=== PATIENT | female | born 1985 | race Caucasian/White ===

== ENCOUNTER 2020-12-11 20:11 | Emergency (ER) | payer MEDICAID ==
[~2020-12-11] VITALS: Ht 157.5 cm; Wt 90.7 kg
[2020-12-11 20:36] VITALS: BP_SYST 147
[2020-12-11 22:05] LABS: BASOPHILS % (AUTO) 0.3 % (0.0-2.0); EOSINOPHILS # (AUTO) 0.1 K/uL (0.0-0.4); EOSINOPHILS % (AUTO) 1.2 % (0.0-4.0); HEMATOCRIT 35.9 % (36-48); LYMPHOCYTES # (AUTO) 1.7 K/uL (1.0-5.5); LYMPHOCYTES % (AUTO) 13.7 % (20.5-51.5); MEAN CORPUSCULAR HEMOGLOBIN 30 pg (27-31); MEAN CORPUSCULAR HGB CONC 33 % (32-36); MEAN CORPUSCULAR VOLUME 91 fL (79.0-98.0); MONOCYTES # (AUTO) 0.5 K/uL (0.0-1.0); MONOCYTES % (AUTO) 4.2 % (1.7-9.3); NEUTROPHILS # (AUTO) 10.1 K/uL (1.8-7.7); NEUTROPHILS % (AUTO) 80.6 % (40.0-70.0); PLATELET COUNT (AUTO) 276 K/uL (130-430); RED BLOOD CELL COUNT(AUTO) 3.97 MIL/uL (4.2-6.2); WHITE BLOOD COUNT (AUTO) 12.5 K/uL (4.8-10.8)
[2020-12-11 22:14] LABS: CALCIUM 9.5 mg/dL (8.4-11.0); CREATININE 1.21 mg/dL (0.55-1.30); POTASSIUM 4.1 mmol/L (3.5-5.1)
--- NOTE | 2020-12-11 22:16 | NUR ---
Placed in room 03 . Placed on air sampling and monitoring, blood pressure machine and pulse oximeter. To gown for exam. Side rails up. Report given to CHELSEA Llamas
[2020-12-11 22:20] LABS: ALBUMIN 3.9 g/dL (3.4-4.8); TOTAL BILIRUBIN 0.3 mg/dL (0.0-1.0)
[2020-12-11 22:23] LABS: BILIRUBIN,URINE NEGATIVE (NEGATIVE); BLOOD, URINE 2+ (NEGATIVE); GLUCOSE,URINE NEGATIVE (NEGATIVE); KETONES,URINE NEGATIVE (NEGATIVE); LEUKOCYTE ESTERASE ,URINE NEGATIVE (NEGATIVE); NITRITE, URINE NEGATIVE (NEGATIVE); PH,URINE 6.5 (5.0-8.0); PROTEIN URINE NEGATIVE (NEGATIVE); UROBILINOGEN,URINE 0.2 (0.2-1.0)
--- NOTE | 2020-12-11 22:26 | NUR ---
ER Dr. Dean at bedside examining patient.
[2020-12-11 22:34] LABS: CLARITY/URINE SLIGHTLY HAZY (CLEAR); COLOR,URINE STRAW (YELLOW)
--- NOTE | 2020-12-11 22:39 | NUR ---
PATIENT FROM HOME AMBULATORY AOX 4 COMPLAINING OF SHARP STABBING CONSTANT RIGHT SIDED PELVIC PAIN RADIATING TO THE LEFT X 1 WEEK WORSENING. DENIES ANY NAUSEA, VOMITING, DIARRHEA, CONSTIPATION. RLQ PAIN ON PALPATION. PAIN 8/10.
[2020-12-11 22:52] LABS: BACTERIA,URINE RARE /HPF (None Seen); MUCUS,URINE None Seen /LPF (None Seen); WBC,URINE 0-3 /HPF (0-3)
[2020-12-11] MEDS ORDERED: AMOX-426 PO (22:57)
[2020-12-11] MEDS ORDERED: ONDA-8 TL (22:57)
[2020-12-11] MEDS ORDERED: IBUP-1970 PO (22:57)
[2020-12-11] MEDS ORDERED: MORPHINE 2 MG/ML INJ. SYRINGE IVP ONE (23:00)
[2020-12-11] MEDS ORDERED: ONDANSETRON 4 MG ODT TAB PO ONE (23:00)
[2020-12-11] MEDS ORDERED: AMOXICILLIN/CLAVULANATE POTASSIUM 875 MG TABLET PO ONE (23:00)
--- NOTE | 2020-12-11 23:05 | NUR ---
Dr. Dean at bedside discussing results with patient.
[2020-12-11] MEDS ORDERED: MORPHINE 2 MG/ML INJ. SYRINGE IM ONE (23:15)
[2020-12-11 23:35] VITALS: BP_SYST 142
--- NOTE | 2020-12-11 23:35 | NUR ---
Patient given written and verbal discharge instructions and verbalizes understanding. ER MD discussed with patient the results and treatment provided. Patient in stable condition. ID arm band removed. Rx of AUGMENTIN, IBUPROFEN, AND ZOFRAN given. Patient educated on pain management and to follow up with PMD. Pain Scale 0/10 Opportunity for questions provided and answered. Medication side effect fact sheet provided.
== END 2020-12-11 23:35 | disposition home or self-care (01) ==
LOC: SED 20:11
DX: K57.32 Diverticulitis of large intestine without perforation or abscess without bleeding (principal); Z88.5 Allergy status to narcotic agent; Z88.6 Allergy status to analgesic agent; Z79.899 Other long term (current) drug therapy
CPT/HCPCS: 36415; 74176; 76376; 80053; 81000; 81025; 83690; 85025; 96372; 99284; J2270; Q0162